=== PATIENT | female | born 1980 | race Caucasian/White ===

== ENCOUNTER 2024-09-24 13:07 | Emergency (ER) | payer OTHER, SELFPAY ==
--- NOTE | ~2024-09-24 | CT_ITS ---
CT thoracic lumbar wo con Ordering provider: Yuval Sanders History: . back pain, parasthesias in BLE . Comparison: None. Technique: CT thoracic and lumbar spine without contrast. Automated exposure control and iterative r econstruction technique were employed. The dose-length product was 2207.93 mGy-cm. FINDINGS: VERTEBRAE: Normal height and alignment. No subluxation or visible acute fracture. DISC SPACES: Well maintained. Ligamentous ossification is seen posterior to C7, T1, T2 and T3. C7-T1: Moderate spinal canal stenosis with narrowing of the left foramen. T1-T2: Mild spinal canal stenosis by ossification of the ligament. T2-T3: Mild spinal canal stenosis but ossification of the ligament. T3-T4: Mild spinal canal stenosis but calcification of the ligament. Other levels in the thoracic area are unremarkable. L3-L4: Mild spinal canal stenosis with Mild diffuse disc bulge. L4-L5: Severe spinal canal stenosis with diffuse disc bulge, bilateral facet joint disease and narrow ing of the foramina. Bilateral nerve root compression. L5-S1: Mild diffuse disc bulge. PARASPINOUS SOFT TISSUES: Normal. Groundglass appearance is seen in both lungs with areas of emphysematous changes. IMPRESSION: No acute osseous abnormality of the thoracic and lumbar spine. 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 Severe spinal canal stenosis at the level of L4-L5 with bilateral narrowing of the foramina and with compression. Reviewed, dictated and finalized at location A. IMPRESSION: No acute osseous abnormality of the thoracic and lumbar spine. Ossification of the posterior longitudinal ligament at the levels of T1, T2, an d T3 with variable degrees of spinal canal stenosis. Severe spinal canal stenosis at the level of L4-L5 with bilateral narrowing of the foramina and with compression.
[2024-09-24 13:14] VITALS: BP 165/75; PULSE 86; RESP 16; TEMP 36.2; O2SAT 99
--- NOTE | 2024-09-24 14:11 | ED_ITS ---
HPI - Neuro Symptoms/Deficit General Chief Complaint: Neuro Symptoms/Deficit <Yuval Sanders PA-C - Last Filed: 09/24/24 18:14> Stated Complaint: bilateral numbness ribs down to toes <Yuval Sanders PA-C - Last Filed: 09/24/24 18:14> Time Seen by Provider: 09/24/24 14:07 <Yuval Sanders PA-C - Last Filed: 09/24/24 18:14> Focused HPI: This is a 43-year-old female who presents to the ED for numbness for the past 3 weeks. Reports feeling numb from bilateral ribs down to her toes and states that really this is been going on intermittently for the past couple months. States that she is currently living in her car and was at [facility] 2 days ago but left before receiving her results. States that she is able to walk but it feels very funny. She feels uncoordinated. states that her back feels very tight whenever she tries to stand up. Denies traumatic injury, syncope, shortness of breath, chest pain, loss of strength. GENERAL: Well-appearing, well-nourished, and in no acute distress. HEAD: Normocephalic, atraumatic. CHEST: Clear to auscultation. No respiratory distress. HEART: Regular rate and rhythm. NEURO: Alert and oriented x3. 5/5 strength in the upper and lower extremities distally. Patient screened in triage and initial orders placed. Additional care and disposition to be based upon diagnostic testing and treatment. <Yuval Sanders PA-C - Last Filed: 09/24/24 18:14> Source: patient <Yuval Sanders PA-C - Last Filed: 09/24/24 18:14> Mode of arrival: ambulatory <Yuval Sanders PA-C - Last Filed: 09/24/24 18:14> Limitations: no limitations <Yuval Sanders PA-C - Last Filed: 09/24/24 18:14> History of Present Illness HPI Narrative: Agree with the HPI <Donny Senior MD - Last Filed: 09/24/24 17:37> Related Data Allergies/Adverse Reactions: Allergies Allergy/AdvReac Type Severity Reaction Status Date / Time No Known Allergies Allergy Verified 09/24/24 13:11 <Yuval Sanders PA-C - Last Filed: 09/24/24 18:14> Review of Systems Review of Systems: All systems reviewed & are unremarkable except as noted in HPI and below <Donny Senior MD - Last Filed: 09/24/24 17:37> Constitutional: Constitutional: Reports no additional constitutional complaints <Donny Senior MD - Last Filed: 09/24/24 17:37> Cardiovascular: Cardiovascular: Reports no additional cardiovascular complaints <Donny Senior MD - Last Filed: 09/24/24 17:37> Respiratory: Respiratory: Reports no additional respiratory complaints <Donny Senior MD - Last Filed: 09/24/24 17:37> Gastrointestinal: Gastrointestinal: Reports no additional gastrointestinal complaints <Donny Senior MD - Last Filed: 09/24/24 17:37> Musculoskeletal: Musculoskeletal: Reports back pain, Denies muscle weakness, Reports numbness and Reports radiating pain into limb <Donny Senior MD - Last Filed: 09/24/24 17:37> Neurologic: Denies frequent falls, Denies focal weakness, Reports tingling and Reports paresthesias <Donny Senior MD - Last Filed: 09/24/24 17:37> FOR[facility]LY [facility] Past Medical History Medical History: Medical History (Updated 09/24/24 @ 17:31 by Donny Senior MD) Fatty liver Hypertension <Yuval Sanders PA-C - Last Filed: 09/24/24 18:14> Surgical History Surgical History: Surgical History (Updated 09/24/24 @ 17:27 by Donny Senior MD) H/O tubal ligation History of carpal tunnel surgery History of cholecystectomy <Yuval Sanders PA-C - Last Filed: 09/24/24 18:14> Exam Narrative: GENERAL: Well-appearing, morbidly obese, and in no acute distress. HEAD: Normocephalic, atraumatic. ENT: Mucous membranes moist. CHEST: Clear to auscultation. No respiratory distress. HEART: Regular rate and rhythm. Normal peripheral pulses. ABDOMEN: Soft, nontender, nondistended. Back: No midline tenderness at T/L-spine. There is tightness in the musculatur e of the paraspinal muscles in the lumbar region. EXTREMITIES: Normal range of motion. No edema. 5/5 strength in bilateral lower extremities at the hip/knee and ankle. Patient ambulates slowly SKIN: Warm, dry, no rash. NEURO: Alert and oriented x3. Sharp and soft touch intact throughout the back and lower extremities. <Donny Senior MD - Last Filed: 09/24/24 17:37> Course Course Emergency Course: Discussed imaging findings and hx/exam with Dr. Chau. Recommend outpt follow up. Patient will also need to establish care with a PCP. Will give her the micromatic hone operator number. Recommend establishing care with PCP as well as obtain insurance. Will treat with anti-inflammatories muscle relaxers. Discussed weight loss goals. <Donny Senior MD - Last Filed: 09/24/24 17:37> Vital Signs Vital signs: Vital Signs Temperature 97.1 F L 09/24/24 13:14 Pulse Rate 86 09/24/24 13:14 Respiratory Rate 16 09/24/24 13:14 Blood Pressure 165/75 H 09/24/24 13:14 Pulse Oximetry 99 09/24/24 13:14 Oxygen Delivery Room Air 09/24/24 13:14 Temperature 97.1 F L 09/24/24 13:14 Pulse Rate 82 09/24/24 18:06 Respiratory Rate 17 09/24/24 18:06 Blood Pressure 198/100 H 09/24/24 18:06 Pulse Oximetry 98 09/24/24 18:06 Oxygen Delivery Room Air 09/24/24 13:14 <Yuval Sanders PA-C - Last Filed: 09/24/24 18:14> Vital Signs Temperature 97.1 F L 09/24/24 13:14 Pulse Rate 86 09/24/24 13:14 Respiratory Rate 16 09/24/24 13:14 Blood Pressure 165/75 H 09/24/24 13:14 Pulse Oximetry 99 09/24/24 13:14 Oxygen Delivery Room Air 09/24/24 13:14 Temperature 97.1 F L 09/24/24 13:14 Pulse Rate 82 09/24/24 18:06 Respiratory Rate 17 09/24/24 18:06 Blood Pressure 198/100 H 09/24/24 18:06 Pulse Oximetry 98 09/24/24 18:06 Oxygen Delivery Room Air 09/24/24 13:14 <Donny Senior MD - Last Filed: 09/24/24 17:37> MDM - Neuro Symptoms/Deficit Lab Data Result diagrams: 09/24/24 14:17 09/24/24 14:17 <Yuval Sanders PA-C - Last Filed: 09/24/24 18:14> Labs: Lab Results 09/24/24 09/24/24 Range/Units 14:17 15:49 WBC 7.4 (4.5-10.0) K/mm3 RBC 4.27 (4.2-5.4) M/mm3 Hgb 12.9 (12.0-15.0) g/dL Hct 38.6 (37.0-47.0) % MCV 90.4 (80-100) fl MCH 30.2 (26-34) pg MCHC 33.4 (32-36) g/dl RDW 13.3 (11.5-14.5) % Plt Count 286 (150-375) k/mm3 MPV 10.9 H (7.4-10.4) fl Immature Gran % (Auto) 0.4 (0-0.5) % Neut % (Auto) 70.0 (45.5-73.1) % Lymph % (Auto) 20.2 (18.3-44.2) % [place] % (Auto) 8.1 (2.6-8.5) % Eos % (Auto) 0.9 (0-4.4) % Baso % (Auto) 0.4 (0.2-1.2) % Lymph # (Auto) 1.49 (0.9-3.2) K/mm3 [place] # (Auto) 0.6 (0.1-0.6) K/mm3 Eos # (Auto) 0.1 (0-0.3) K/mm3 Baso # (Auto) 0.0 (0.0-0.1) K/mm3 Abs Immat Gran (auto) 0.03 (0.00-0.031) K/mm3 Absolute Neuts (auto) 5.2 (1.3-6.7) K/mm3 Absolute Nucleated RBC 0.000 (0.0-0.012) K/mm3 Nucleated RBC % 0.0 (0.0-0.2) % Sodium 139 (137-145) mmol/L Potassium 3.6 (3.4-5.0) mmol/L Chloride 104 (98-107) mmol/L Carbon Dioxide 25 (22-30) mmol/L Anion Gap 10 (4-12) mmol/L BUN 12 (7-17) mg/dL Creatinine 0.70 (0.7-1.0) mg/dL Estim Creat Clear Calc 119 ml/min Estimated GFR > 60 (59 - ) Glucose 104 (65-110) mg/dL Calcium 8.6 (8.4-10.2) mg/dL Total Bilirubin 0.7 (0.2-1.3) mg/dL AST 29 (14-36) U/L ALT 26 (6-35) U/L Alkaline Phosphatase 57 (38-126) U/L Total Protein 7.0 (6.3-8.2) g/dL Albumin 3.9 (3.5-5.1) g/dL Urine Color Yellow (Yellow) Urine Appearance Clear (Clear) Urine pH 6.0 (5.0-9.0) Ur Specific [place] 1.023 (1.001-1.035) Urine Protein 1+ H (Negative) mg/dL Urine Glucose (UA) Negative (Negative) mg/dL Urine Ketones Trace H (Negative) mg/dL Ur Blood (Man) 1+ H (Negative) Urine Nitrate Negative (Negative) Urine Bilirubin Negative (Negative) Urine Urobilinogen 1.0 (<2.0) mg/dL Leukocyte Esterase Rfl 1+ H (Negative) CECILIA/UL Urine RBC 6-10 H (0-2) /hpf Urine WBC 6-10 H (0-3) /hpf Ur Squamous Epith Cells None seen (Few) /hpf Urine Bacteria None seen /hpf Urine Casts 0-2 <Yuval Sanders PA-C - Last Filed: 09/24/24 18:14> Lab Results 09/24/24 09/24/24 Range/Units 14:17 15:49 WBC 7.4 (4.5-10.0) K/mm3 RBC 4.27 (4.2-5.4) M/mm3 Hgb 12.9 (12.0-15.0) g/dL Hct 38.6 (37.0-47.0) % MCV 90.4 (80-100) fl MCH 30.2 (26-34) pg MCHC 33.4 (32-36) g/dl RDW 13.3 (11.5-14.5) % Plt Count 286 (150-375) k/mm3 MPV 10.9 H (7.4-10.4) fl Immature Gran % (Auto) 0.4 (0-0.5) % Neut % (Auto) 70.0 (45.5-73.1) % Lymph % (Auto) 20.2 (18.3-44.2) % [place] % (Auto) 8.1 (2.6-8.5) % Eos % (Auto) 0.9 (0-4.4) % Baso % (Auto) 0.4 (0.2-1.2) % Lymph # (Auto) 1.49 (0.9-3.2) K/mm3 [place] # (Auto) 0.6 (0.1-0.6) K/mm3 Eos # (Auto) 0.1 (0-0.3) K/mm3 Baso # (Auto) 0.0 (0.0-0.1) K/mm3 Abs Immat Gran (auto) 0.03 (0.00-0.031) K/mm3 Absolute Neuts (auto) 5.2 (1.3-6.7) K/mm3 Absolute Nucleated RBC 0.000 (0.0-0.012) K/mm3 Nucleated RBC % 0.0 (0.0-0.2) % Sodium 139 (137-145) mmol/L Potassium 3.6 (3.4-5.0) mmol/L Chloride 104 (98-107) mmol/L Carbon Dioxide 25 (22-30) mmol/L Anion Gap 10 (4-12) mmol/L BUN 12 (7-17) mg/dL Creatinine 0.70 (0.7-1.0) mg/dL Estim Creat Clear Calc 119 ml/min Estimated GFR > 60 (59 - ) Glucose 104 (65-110) mg/dL Calcium 8.6 (8.4-10.2) mg/dL Total Bilirubin 0.7 (0.2-1.3) mg/dL AST 29 (14-36) U/L ALT 26 (6-35) U/L Alkaline Phosphatase 57 (38-126) U/L Total Protein 7.0 (6.3-8.2) g/dL Albumin 3.9 (3.5-5.1) g/dL Urine Color Yellow (Yellow) Urine Appearance Clear (Clear) Urine pH 6.0 (5.0-9.0) Ur Specific [place] 1.023 (1.001-1.035) Urine Protein 1+ H (Negative) mg/dL Urine Glucose (UA) Negative (Negative) mg/dL Urine Ketones Trace H (Negative) mg/dL Ur Blood (Man) 1+ H (Negative) Urine Nitrate Negative (Negative) Urine Bilirubin Negative (Negative) Urine Urobilinogen 1.0 (<2.0) mg/dL Leukocyte Esterase Rfl 1+ H (Negative) CECILIA/UL Urine RBC 6-10 H (0-2) /hpf Urine WBC 6-10 H (0-3) /hpf Ur Squamous Epith Cells None seen (Few) /hpf Urine Bacteria None seen /hpf Urine Casts 0-2 <Donny Senior MD - Last Filed: 09/24/24 17:37> Imaging Data Radiologist's impression: ITS Impressions Thoracic/Lumbar Spine CT 09/24/24 15:02 IMPRESSION: No acute osseous abnormality of the thoracic and lumbar spine. 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 Severe spinal canal stenosis at the level of L4-L5 with bilateral narrowing of the foramina and with compression. <Donny Senior MD - Last Filed: 09/24/24 17:37> Discharge Plan Discharge Clinical Impression: Spinal stenosis at L4-L5 level <Yuval Sanders PA-C - Last Filed: 09/24/24 18:14> Patient Disposition: Home, Self-Care <Yuval Sanders PA-C - Last Filed: 09/24/24 18:14> Condition: Stable <Yuval Sanders PA-C - Last Filed: 09/24/24 18:14> Instructions: Lumbar Spinal Stenosis (ED) <Yuval Sanders PA-C - Last Filed: 09/24/24 18:14> Additional Instructions: Please return to the emergency department if you develop severe pain that is not controlled by pain medications or if you are unable to walk because of pain or weakness. Return to the emergency department immediately if you develop fevers, loss of bowel or bladder control (dribbling of urine or having accidents you wouldn't normally have), inability to urinate, numbness of your genital or anal area, or weakness/numbness of your legs or arms as these could all be signs of a serious medical emergency. Your CT scan shows severe spinal canal stenosis at L4/L5 with bulging of the disc and narrowing of the foramina. You need to follow-up with neurosurgery. It is important that you establish care with a primary care doctor as well. <Yuval Sanders PA-C - Last Filed: 09/24/24 18:14> Prescriptions: New cyclobenzaprine 10 mg tablet 10 mg PO TID PRN (Reason: muscle spasm) Qty: 20 0RF naproxen 375 mg tablet 375 mg PO BID Qty: 14 0RF <Yuval Sanders PA-C - Last Filed: 09/24/24 18:14> Follow-up/Referrals: Phuong Kulkarni DO [Physician] - 1 Week PHYSICIAN NOT ON STAFF,NONSTAFF [Primary Care Provider] - Yana Chau MD [Physician] - 1 Week <Yuval Sanders PA-C - Last Filed: 09/24/24 18:14> Stand Alone Forms: Work/School Release IP <Yuval Sanders PA-C - Last Filed: 09/24/24 18:14>
[2024-09-24 14:24] LABS: Basophils Percent Auto 0.4 % (0.2-1.2); Eosinophils Absolute Auto 0.1 K/mm3 (0-0.3); Eosinophils Percent Auto 0.9 % (0-4.4); Hematocrit 38.6 % (37.0-47.0); Hemoglobin 12.9 g/dL (12.0-15.0); Immature Granulocyte Absolute 0.03 K/mm3 (0.00-0.031); Immature Granulocyte Percent A 0.4 % (0-0.5); Lymphocytes Absolute Auto 1.49 K/mm3 (0.9-3.2); Lymphocytes Percent Auto 20.2 % (18.3-44.2); Mean Corpuscular HGB Conc 33.4 g/dl (32-36); Mean Corpuscular Hemoglobin 30.2 pg (26-34); Mean Corpuscular Volume 90.4 fl (80-100); Mean Platelet Volume 10.9 fl (7.4-10.4); Monocytes Absolute Auto 0.6 K/mm3 (0.1-0.6); Monocytes Percent Auto 8.1 % (2.6-8.5); Neutrophils Absolute Auto 5.2 K/mm3 (1.3-6.7); Platelet Count Result 286 k/mm3 (150-375); Red Blood Count 4.27 M/mm3 (4.2-5.4); Red Cell Distribution Width 13.3 % (11.5-14.5); White Blood Count 7.4 K/mm3 (4.5-10.0)
[2024-09-24 14:35] LABS: Alanine Aminotransferase 26 U/L (6-35); Albumin Level 3.9 g/dL (3.5-5.1); Alkaline Phosphatase 57 U/L (38-126); Anion Gap 10 mmol/L (4-12); Aspartate Amino Transferase 29 U/L (14-36); Bilirubin,Total 0.7 mg/dL (0.2-1.3); Blood Urea Nitrogen 12 mg/dL (7-17); Calcium 8.6 mg/dL (8.4-10.2); Carbon Dioxide 25 mmol/L (22-30); Chloride 104 mmol/L (98-107); Estimated CRCL calculation 119 ml/min; Estimated Glomerular Filt Rate > 60; Glucose 104 mg/dL (65-110); Potassium 3.6 mmol/L (3.4-5.0); Sodium 139 mmol/L (137-145)
[2024-09-24 16:02] LABS: Add Urine Microscopic? YES; Appearance Urine Clear (Clear); Bacteria Urine None Seen /hpf; Bilirubin Urine Negative (Negative); Blood Urine 1+ (Negative); Color Urine Yellow (Yellow); Glucose Urine UA Negative (Negative); Ketones Urine Trace mg/dL (Negative); Leukocyte Esterase Ur 1+ LEU/UL (Negative); Nitrate Urine Negative (Negative); Non Pathogenic Casts 0-2; Protein Urine 1+ mg/dL (Negative); Specific Grav Ur 1.023 (1.001-1.035); Squamous Epithelial Cell Urine None Seen /hpf (Few)
[2024-09-24 18:06] VITALS: BP 198/100; PULSE 82; RESP 17; O2SAT 98
== END 2024-09-24 18:11 | disposition home or self-care (01) ==
PROVIDERS: Physician Assistant; Emergency Provider Emergency Medicine
DX: M48.061 Spinal stenosis, lumbar region without neurogenic claudication (principal); I10 Essential (primary) hypertension; Z90.49 Acquired absence of other specified parts of digestive tract
CPT/HCPCS: 36415; 72128; 72131; 80053; 81001; 85025; 87086; 99284

== ENCOUNTER 2024-10-25 22:18 | Emergency (ER) | payer MEDICAID, SELFPAY ==
[2024-10-25 22:21] VITALS: BP 171/98; PULSE 80; RESP 16; TEMP 36.2; O2SAT 100
--- NOTE | 2024-10-26 01:19 | PC.NURSE ---
Pt and her visitor came up to desk and stated they were leaving. Pt encouraged to stay and be seen by doctor. Pt states she cant keep sitting in a chair so she needs to leave.
== END 2024-10-26 01:38 | disposition left against medical advice (07) ==
DX: M54.50 Low back pain, unspecified (principal)
CPT/HCPCS: 99199